=== PATIENT | male | born 2000 | race Caucasian/White ===

== ENCOUNTER 2021-09-06 09:48 | Emergency (ER) | payer OTHER, BC, SELFPAY ==
[2021-09-06 09:51] VITALS: BP 162/92; PULSE 100; RESP 16; TEMP 36.6; O2SAT 99
--- NOTE | 2021-09-06 10:30 | ED.GENADULT ---
HPI - General Adult General Chief complaint: Wound/Laceration <Tamie Paredes PA-C - Last Filed: 09/06/21 13:37> Stated complaint: laceration <SULY Keyes Last Filed: 09/06/21 13:37> Time Seen by Provider: 09/06/21 10:13 <Tamie Paredes PA-C - Last Filed: 09/06/21 13:37> Source: patient <SULY Keyes Last Filed: 09/06/21 13:37> Mode of arrival: ambulatory <SULY Keyes Last Filed: 09/06/21 13:37> Limitations: no limitations <SULY Keyes Filed: 09/06/21 13:37> History of Present Illness HPI narrative: Patient is a 21-year-old male presenting with chief complaint of lacerations to the volar aspect of facelift states she needed a 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 Patient reports bleeding is controlled to the area. Patient denies any loss of range of motion. Patient denies any other injuries. Patient reports that he is up-to-date on Tdap. <SULY Keyes Last Filed: 09/06/21 13:37> Related Data Home medications: Home Medications Medication Instructions Recorded Confirmed No Home Medications 09/06/21 09/06/21 <Tamie Paredes PA-C - Last Filed: 09/06/21 13:37> Allergies/adverse reactions: Allergies Allergy/AdvReac Type Severity Reaction Status Date / Time clarithromycin [From Biaxin] AdvReac Nausea and Verified 09/06/21 09:57 Vomiting <Tamie Paredes PA-C - Last Filed: 09/06/21 13:37> Review of Systems Review of Systems: CONSTITUTIONAL: Denies fever, chills, or sweats. EYES: Denies visual changes, redness, or discharge. ENT: Denies rhinorrhea, congestion, sore throat, or otalgia. CARDIOVASCULAR: Denies chest pain, palpitations, or edema. RESPIRATORY: Denies cough or dyspnea. GASTROINTESTINAL: Denies abdominal pain, nausea, vomiting, or diarrhea. GENITOURINARY: Denies dysuria or hematuria. SKIN: Reports laceration denies rash or itching. MUSCULOSKELETAL: Denies back pain, joint pain, or myalgia. NEUROLOGIC: Denies headache, numbness, dizziness, or weakness. PSYCHIATRIC: Denies anxiety or depression. <Tamie Paredes PA-C - Last Filed: 09/06/21 13:37> Exam Narrative: GENERAL: Well-appearing, well-nourished, and in no acute distress. HEAD: Normocephalic, atraumatic. EYES: PERRLA and EOMI. CHEST: No respiratory distress. No tachypnea HEART: Regular rate and rhythm. No murmur heard. Normal peripheral pulses. EXTREMITIES: Normal range of motion. No edema. SKIN: Approx 2.5Centimeter laceration to the volar aspect of the second left digit. No active bleeding. No obvious signs of foreign body. Warm, dry, no rash. NEURO: No focal deficits. Alert and oriented x3. PSYCH: Normal mood and affect. <Tamie Paredes PA-C - Last Filed: 09/06/21 13:37> Course ROUTER MACHINE OPERATOR/PA Physician Supervision For this patient encounter, I reviewed the ROUTER MACHINE OPERATOR or PA documentation, treatment plan, and medical decision making. <Roni Moralez MD - Last Filed: 09/06/21 13:41> Vital Signs Vital signs: Vital Signs Temperature 97.8 F 09/06/21 09:51 Pulse Rate 100 09/06/21 09:51 Respiratory Rate 16 09/06/21 09:51 Blood Pressure 162/92 H 09/06/21 09:51 Pulse Oximetry 99 09/06/21 09:51 Temperature 97.8 F 09/06/21 09:51 Pulse Rate 100 09/06/21 09:51 Respiratory Rate 16 09/06/21 09:51 Blood Pressure 162/92 H 09/06/21 09:51 Pulse Oximetry 99 09/06/21 09:51 <Tamie Paredes PA-C - Last Filed: 09/06/21 13:37> Vital Signs Temperature 97.8 F 09/06/21 09:51 Pulse Rate 100 09/06/21 09:51 Respiratory Rate 16 09/06/21 09:51 Blood Pressure 162/92 H 09/06/21 09:51 Pulse Oximetry 99 09/06/21 09:51 Temperature 97.8 F 09/06/21 09:51 Pulse Rate 100 09/06/21 09:51 Respiratory Rate 16 09/06/21 09:51 Blood Pressure 162/92 H 09/06/21 09:51 Pulse Oximetry 99 09/06/21 09:51 <Roni Moralez MD - Last Filed: 09/06/21 13:41> Procedures Lit
== END 2021-09-06 11:04 | disposition home or self-care (01) ==
PROVIDERS: Emergency Provider Emergency Medicine
DX: S61.211A Laceration without foreign body of left index finger without damage to nail, initial encounter (principal); W27.8XXA Contact with other nonpowered hand tool, initial encounter
CPT/HCPCS: 12001; 99282